=== PATIENT | male | born 1960 | race Caucasian/White ===

== ENCOUNTER 2018-06-05 07:39 | Observation (INO) ==
--- NOTE | 2018-06-05 08:09 | Emergency Department Note ---
Disposition Clinical Impression: Altered mental status, Accidental overdose Disposition: Admitted As Inpatient Condition: Good Altered Mental Status HPI - General Chief Complaint: ED Altered Mental Status Stated Complaint: altered mental status Time Seen by Provider: 06/05/18 07:40 Source: patient, EMS Mode of arrival: ambulatory Limitations: no limitations Nursing Notes Reviewed: Yes Vital Signs Reviewed: Yes - History of Present Illness HPI Narrative: Patient was apparently found wandering in the apartment complex knocking on doors trying to find his apartment. His also been laying in the mud. EMS to c ontinue his apartment and had him changes closed prior to coming in. Patient denies any complaints. He denies any pain denies any headache denies any fevers chills nausea vomiting chest pain or other complaints. He says his bipolar disorder sometimes makes him act funny. He also adds that he was recently given a trazodone prescription for sleep and he thinks because he has not taken this for quite some time its making him more sleepy than usual and confused. He is able say where he is who he is and the condition surrounding his admission here in the emergency department MD complaint: altered mental status Onset (ago): unknown Context: unknown Associated symptoms: Reports: denies other symptoms - Related Data Home Medications Medication Instructions Recorded Confirmed Famotidine [Heartburn Prevention] 20 mg PO BID 06/05/18 06/05/18 HydrOXYzine Pamoate [Vistaril] 50 mg PO Q6H PRN 06/05/18 06/05/18 Lisinopril [Zestril] 20 mg PO DAILY 06/05/18 06/05/18 Propranolol [Inderal] 5 mg PO BID 06/05/18 06/05/18 Quetiapine Fumarate [Seroquel] 400 mg PO HS 06/05/18 06/05/18 risperiDONE [Risperdal] 1 mg PO QAM 06/05/18 06/05/18 risperiDONE [Risperdal] 2 mg PO HS 06/05/18 06/05/18 traZODone [TraZODone] 1 - 2 tab PO 06/05/18 06/05/18 Allergies Allergy/AdvReac Type Severity Reaction Status Date / Time diphenhydramine Allergy See Verified 06/05/18 07:59 [From Benadryl] Comments lorazepam [From Ativan] Allergy See Verified 06/05/18 07:59 Comments All systems ED: reviewed and negative except as stated. Review of Systems: As Per HPI Constitutional: Denies: fever, chills, weakness, weight change Eyes: Denies: eye pain, eye discharge, vision change ENT ED: Denies: ear pain, throat pain, dental pain, hearing loss, epistaxis, congestion, dysphagia Cardiovascular: Denies: chest pain, palpitations, dyspnea on exertion, edema, syncope Respiratory: Denies: cough, dyspnea, wheezes, hemoptysis, stridor Gastrointestinal: Denies: abdominal pain, nausea, vomiting, diarrhea, constipation, hematemesis, melena, hematochezia Genitourinary: Denies: urgency, dysuria, frequency, hematuria Musculoskeletal: Denies: back pain, neck pain, arthralgia, myalgia Integumentary: Denies: rash, abrasion, lesions Neurological: Denies: headache, weakness, numbness, paresthesias, confusion, abnormal gait, vertigo Psychiatric: Denies: anxiety, depression, suicidal thoughts, homicidal thoughts, auditory hallucinations, visual hallucinations Endocrine: Denies: fatigue Hematological/Lymphatic: Denies: easy bleeding, easy bruising Allergic/Immunologic: Denies: facial swelling, urticaria Past Medical History - Past Medical History Attestation: Yes The following information was validated with the patient. Source: patient, nursing notes reviewed Medical history: Reports: GERD, hypertension Psychiatric history: Reports: bipolar, depression - Social History Smoking Status: Never smoker Smokeless Tobacco Status: No Alcohol use: Reports: none Drug use: Reports: none Physical Exam - General Limitations: no limitations General appearance: alert - Head Head exam: atraumatic, normocephalic, normal inspection - Eye Eye exam: Present: normal appearance, PERRL, EOMI - ENT ENT exam: normal exam, normal oropharynx, mucous membranes moist - Neck Neck exam: Present: normal inspection, full ROM, trachea midline - Chest Chest inspection: Present: normal inspection, symmetric chest wall rise - Respiratory Respiratory exam: Present: normal lung sounds bilaterally - Cardiovascular Cardiovascular exam: Present: regular rate, normal rhythm, normal heart sounds - Abdominal Exam Abdominal exam: Present: soft, Non-Tender, normal bowel sounds - Extremities Exam Extremities exam: Present: normal inspection, full ROM. Absent: tenderness, pedal edema - Back Exam Back exam: Present: normal inspection, full ROM. Absent: tenderness - Neurological Exam Neurological exam: Present: alert, oriented X3 - Psychiatric Psychiatric exam: Present: normal affect, normal mood - Skin Skin exam: Present: warm, dry, intact, normal color Course Vital Signs Temperature 97.4 F L 06/05/18 07:49 Pulse Rate 72 06/05/18 07:49 Respiratory Rate 14 06/05/18 07:49 Blood Pressure 128/82 06/05/18 07:49 O2 Sat by Pulse Oximetry 98 06/05/18 07:49 Temperature 97.4 F L 06/05/18 07:49 Pulse Rate 72 06/05/18 07:49 Respiratory Rate 14 06/05/18 07:49 Blood Pressure 128/82 06/05/18 07:49 O2 Sat by Pulse Oximetry 98 06/05/18 07:49 Oxygen Delivery Oxygen Delivery Room Air Altered Mental Status - MDM Narrative Medical decision making narrative: I reviewed the patient's medication list. He provided a blister pack of his medications from last week and the pills were not taken as directed. He probably is not taking his medicines as directed. I discussed case with Dr. Balderas who is graciously accepted admission to the hospital - Lab Data Lab results reviewed: Yes I reviewed the patient's lab results. - Radiology Data Radiology results reviewed: Yes I reviewed the patient's radiology results. - EKG Data EKG attestation: Yes I reviewed and interpreted this EKG. EKG results narrative: EKG shows sinus rhythm rate of 61 bpm. [place] interval is 143 ms. QRS duration 96 ms. QT and QTC intervals are 422 426 ms respectively. R axis of 60 degrees. There are no acute ischemic changes appreciated however there are some nonspecific ST-T abnormalities appreciated. TPA Checklist - LKW: 3-4.5 hrs Add. Warnings/Precautions Patient/family understanding: The patient/family members have been counseled and understood the risk, benefit, and alternatives of treatment.
[2018-06-05 08:44] LABS: Basophils % 0.5 %; Eosinophils # 0.1 K/mcL (0.0-0.6); Eosinophils % 1.8 %; Hematocrit 38.1 % (37.5-50.1); Hemoglobin 13.5 g/dL (12.9-16.9); Immature Granulocytes % 0.4 % (0-4); Lymphocytes # 1.3 K/mcL (0.6-4.6); Lymphocytes % 16.1 %; Mean Corpuscular HGB Conc 35.4 g/dL (31.6-35.5); Mean Corpuscular Hemoglobin 32.2 pg (28.0-33.3); Mean Corpuscular Volume 90.9 fL (83.0-100.0); Mean Platelet Volume 8.6 fL (9.4-12.4); Monocytes # 0.7 K/mcL (0.0-1.3); Neutrophils # 5.7 K/mcL (1.6-8.9); Platelet Count 187 K/mcL (140-400); Red Blood Count 4.19 M/mcL (4.19-5.50); Red Cell Distribution Width 11.6 % (11.5-14.5); Segmented Neutrophils % 72.2 %
[2018-06-05 08:50] LABS: Bilirubin,Urine Negative (Negative); Blood,Urine Moderate (Negative); Clarity,Urine Clear (Clear); Color,Urine Yellow (Yellow); Glucose,Urine (UA) Normal (Normal); Ketones,Urine Negative (Negative); Leukocyte Esterase,Urine Negative (Negative); Nitrite,Urine Negative (Negative); PH,Urine 5.5 pH Units (5.0-8.0); Protein,Urine Trace mg/dL (Neg-Trace); Specific Gravity,Urine 1.025 (1.010-1.025); Urobilinogen,Urine Normal (Normal)
[2018-06-05 09:01] LABS: Amphetamine Screen,Urine Negative ng/mL (Cutoff=1000); Barbiturate Screen,Urine Negative ng/mL (Cutoff=200); Benzodiazepines Screen,Urine Negative ng/mL (Cutoff=200); Cannabinoid Screen,Urine Negative ng/mL (Cutoff = 50); Cocaine Screen,Urine Negative ng/mL (Cutoff= 300); Opiate Screen,Urine Negative ng/mL (Cutoff=300); Phencyclidine Screen,Urine Negative ng/mL (Cutoff=25)
[2018-06-05 09:01] LABS: Troponin I < 0.03 ng/mL (< 0.04)
[2018-06-05 09:02] LABS: Alanine Aminotransferase 20 Units/L (7-52); Albumin 4.5 g/dL (3.5-5.7); Albumin/Globulin Ratio 1.9 (1.1-2.2); Alkaline Phosphatase 68 Units/L (34-104); Aspartate Amino Transferase 22 Units/L (13-39); BUN/Creatinine Ratio 11 (6-26); Bilirubin,Total 0.4 mg/dL (0.3-1.0); Blood Urea Nitrogen 14 mg/dL (8-23); Calcium 9.2 mg/dL (8.6-10.3); Carbon Dioxide 29 mEq/L (23-29); Chloride 101 mEq/L (98-107); Ethanol < 10 mg/dL (Less than 10); Globulin 2.4 g/dL (2.4-3.5); Glucose 123 mg/dL (70-105); Osmolality,Calculated 286 (280-300); Potassium 3.9 mEq/L (3.5-5.1); Sodium 137 mEq/L (136-145); Total Protein 6.9 g/dL (6.4-8.9); eGFR For Non-African Americans 59 (> 60)
[2018-06-05 09:15] LABS: Bacteria,Urine Few per hpf (None-Few)
[2018-06-05] MEDS ORDERED: Naloxone 0.4 MG/ML INJ IVP PRN (10:51)
--- NOTE | 2018-06-05 13:09 | Internal Med History&Physical ---
Date of Encounter: 06/05/18 Time of Encounter: 13:05 Assessment and Plan (1) Altered mental status Current visit: Yes Status: Acute This is apparently improved. We will watch him overnight and if he is stable, discharged tomorrow. As above, I have encouraged him not to use so much Vistaril. Qualifiers: Altered mental status type: delirium Qualified Code(s): R41.0 - Disorientation, unspecified (2) Accidental overdose Current visit: Yes Status: Acute It is presumed that this relates to Vistaril but the exact nature is uncertain. Qualifiers: Encounter type: initial encounter Qualified Code(s): T50.901A - Poisoning by unspecified drugs, medicaments and biological substances, accidental (unintentional), initial encounter (3) Essential hypertension Current visit: Yes Status: Acute Clinically stable and on medication. (4) Bipolar disorder Current visit: Yes Status: Acute This is followed by a psychiatric clinic and will continue his home regimen. Qualifiers: Active/Remission status: currently active Current bipolar episode type: depressed Current episode severity: unspecified Qualified Code(s): F31.30 - Bipolar disorder, current episode depressed, mild or moderate severity, unspecified (5) GERD (gastroesophageal reflux disease) Current visit: Yes Status: Acute This is a questionable diagnosis but the patient is on H2 blockers. Qualifiers: Esophagitis presence: esophagitis presence not specified Qualified Code(s): K21.9 - Gastro-esophageal reflux disease without esophagitis Internal Medicine - H&P: HPI Chief complaint: Mental status change Admitted From: Home Plans for Post Hospital Care: Home History of present illness: Mr. Rai is a 58 year old male who has been in his usual state of health until transported here by squad. He came to the emergency room because of disorientation, he was knocking on other doors and thinking that he was at his own house. He was having "anger issues" and for this reason developed a "panic attack." Because of this, he took 5 or 6 Vistaril to help settle his nerves. Upon review of his home medications, these are 50 mg tablets. I cautioned him that he should use only 2 at the maximum, in the future. He takes Ambien for sleep and he is not sure of the dose. He takes multiple medications for bipolar disorder and the Ambien for sleep. He had a similar episode of disorientation, about 2 months ago. No other problems were associated. He did not take extra Ambien, yesterday. The emergency room felt that this was related to his use of trazodone but he states that he only took it once and it caused him significant shaking so he stopped it. I discussed that he should let his psychiatric prescriber know that he is unable to use this medication but maybe there is a similar medication that he could use. Toxicology screen and other labs were reviewed as noted. Past medical history is significant for hypertension 6 years duration and about 19 years of bipolar disorder. He has not worked since 2009 because of his bipolar disorder. He lives alone, is single and his nearest relative is his aunt who is his legal guardian and who raised him. He used to smoke and dip tobacco but has not for at least 10 years. He denies alcohol or drug use, street drug use, marijuana smoking. Family history is non-contributory. Past Med Surg Social Fam HX - Past Medical History Medical history: GERD, hypertension Psychiatric history: bipolar, depression - Social History Smoking Status: Never smoker Smokeless Tobacco Status: No Alcohol use: none Drug use: none Internal Medicine - H&P: Meds Famotidine [Heartburn Prevention] 20 mg PO BID 06/05/18 [History] HydrOXYzine Pamoate [Vistaril] 50 mg PO Q6H PRN 06/05/18 [History] Lisinopril [Zestril] 20 mg PO DAILY 06/05/18 [History] Propranolol [Inderal] 5 mg PO BID 06/05/18 [History] Quetiapine Fumarate [Seroquel] 400 mg PO HS 06/05/18 [History] risperiDONE [Risperdal] 1 mg PO QAM 06/05/18 [History] risperiDONE [Risperdal] 2 mg PO HS 06/05/18 [History] Allergy/AdvReac Type Severity Reaction Status Date / Time diphenhydramine Allergy See Verified 06/05/18 07:59 [From Benadryl] Comments lorazepam [From Ativan] Allergy See Verified 06/05/18 07:59 Comments trazodone AdvReac Shakiness Verified 06/05/18 12:37 Review of systems: Patient is edentulous. He denies GERD to me although this is on his past medical history list from the previous documentation. Patient has no complaint of chest discomfort, dyspnea, orthopnea, breathing problems, palpitations, nausea or vomiting, constipation or diarrhea, other changes in bowel habits, heartburn, difficulty with urination, kidney problems or kidney stones, fevers chills or sweats, rash or itching, seizures, headache or lightheadedness, heat or cold intolerance, blood problems or anemia, or other new complaints, except as mentioned above. Review of systems is otherwise negative. - Constitutional Vitals: Temp Pulse Resp BP Pulse Ox 97.6 F 59 18 131/75 98 06/05/18 10:38 06/05/18 10:38 06/05/18 10:38 06/05/18 10:38 06/05/18 10:38 Exam: Examination: (Except as mentioned above): General: In no apparent distress, alert and oriented 3. Head: Atraumatic and normocephalic. Eyes: Extraocular muscles are intact, pupils equal round and reactive to light and accommodation. Sclerae anicteric. Ears: External ears are normal to inspection and hearing is grossly normal. Nose: Patent without lesion noted. Mouth: No intraoral lesions seen. He is edentulous. Neck: Supple with trachea midline. There is no thyromegaly or adenopathy and carotids are 2+ without bruit heard. Respiratory: No use of accessory muscles. Lungs are clear throughout. Normal airflow. Cardiovascular: Regular rate and rhythm without murmur appreciated. Abdomen: Bowel sounds are normal. No hepatosplenomegaly masses or tenderness. Obese and therefore difficult to palpate deeply. Extremities: No cyanosis clubbing or edema. Neurological: A and O 3. Cranial nerves II through XII are intact. No focal deficits and no abnormal movements or postures. Skin: Warm and non-diaphoretic with no lesions noted. Breasts, pelvic and rectal: Not examined. Internal Med - H&P Results - Labs CBC & Chem 7: 06/05/18 08:37 06/05/18 08:37 Labs: Short CBC 06/05/18 Range/Units 08:37 WBC 7.9 (4.3-11.1) K/mcL Hgb 13.5 (12.9-16.9) g/dL Hct 38.1 (37.5-50.1) % Plt Count 187 (140-400) K/mcL Neutrophils # 5.7 (1.6-8.9) K/mcL BMP 06/05/18 08:37 Sodium 137 Potassium 3.9 Chloride 101 Carbon Dioxide 29 BUN 14 Creatinine 1.24 Glucose 123 H Calcium 9.2 Cardiac Enzymes 06/05/18 Range/Units 08:37 Troponin I < 0.03 (< 0.04) ng/mL Liver Function 06/05/18 Range/Units 08:37 Total Bilirubin 0.4 (0.3-1.0) mg/dL AST 22 (13-39) Units/L ALT 20 (7-52) Units/L Alkaline Phosphatase 68 (34-104) Units/L Albumin 4.5 (3.5-5.7) g/dL Urine 06/05/18 Range/Units 08:35 Urine Color Yellow (Yellow) Urine Clarity Clear (Clear) Urine pH 5.5 (5.0-8.0) pH Units Ur Specific [place] 1.025 (1.010-1.025) Urine Protein Trace (Neg-Trace) mg/dL Urine Glucose (UA) Normal (Normal) mg/dL - Impressions ITS Impressions Chest X-Ray 06/05/18 08:12 IMPRESSION: No acute findings D/ / Susana Phelan MD / Susana Phelan MD Interpreting Provider: Susana Phelan MD Head CT 06/05/18 08:12 IMPRESSION: No acute intracranial abnormality. D/ / Tyrese Hughes MD / Tyrese Hughes MD Interpreting Provider: Tyrese Hughes MD
[2018-06-05] MEDS ORDERED: hydrOXYzine pamoate 25 MG CAPSULE PO PRN (13:45)
[2018-06-05] MEDS: Famotidine 20 MG TABLET PO SCH (17:55)
[2018-06-05] MEDS ORDERED: risperiDONE 1 MG TABLET PO SCH (21:00)
[2018-06-06] MEDS: Famotidine 20 MG TABLET PO SCH (08:23)
[2018-06-06] MEDS ORDERED: risperiDONE 1 MG TABLET PO SCH (09:00)
[2018-06-06] MEDS ORDERED: Lisinopril 20 MG TABLET PO SCH (09:00)
[2018-06-06 11:52] VITALS: BP 120/70
--- NOTE | 2018-06-06 13:18 | Discharge Summary ---
- NOTES TO OUTPATIENT PROVIDER Notes to Outpatient Provider: Patient was intolerant to trazodone but needs something else for his sleep. In addition, he has been instructed to take only 1 at the time of his Vistaril as he was using 5-6 and at time of 50 mg Vistoril. Date of Encounter: 06/06/18 Time of Encounter: 13:15 - Discharge Diagnosis (1) Altered mental status Priority: Primary Status: Acute Comments: Result of discharge Qualifiers: Altered mental status type: delirium Qualified Code(s): R41.0 - Disorientation, unspecified (2) Accidental overdose Priority: Secondary Status: Acute Qualifiers: Encounter type: initial encounter Qualified Code(s): T50.901A - Poisoning by unspecified drugs, medicaments and biological substances, accidental (unintentional), initial encounter (3) Essential hypertension Priority: Secondary Status: Acute (4) Bipolar disorder Priority: Secondary Status: Acute Qualifiers: Active/Remission status: currently active Current bipolar episode type: depressed Current episode severity: unspecified Qualified Code(s): F31.30 - Bipolar disorder, current episode depressed, mild or moderate severity, unspe cified (5) GERD (gastroesophageal reflux disease) Priority: Secondary Status: Acute Qualifiers: Esophagitis presence: esophagitis presence not specified Qualified Code(s): K21.9 - Gastro-esophageal reflux disease without esophagitis Hospital course: Mr. Rai is a 58 year old male who was in his usual state of health until the day before admission when he developed mental status changes, nonacute on neighbors doors, unable to care for himself. He had clearing of this when brought to the emergency room and was nearly at baseline when admitted. However, overnight he totally cleared his mental status change and went back to baseline. Discharge discussed with: patient - Time Spent with Patient Total time spent providing and/or coordinating discharge services: - Discharge Medications Prescriptions: Discontinued traZODone [TraZODone] 1 - 2 tab PO HS No Action HydrOXYzine Pamoate [Vistaril] 50 mg PO Q6H PRN PRN Reason: Anxiety risperiDONE [Risperdal] 1 mg PO QAM risperiDONE [Risperdal] 2 mg PO HS Quetiapine Fumarate [Seroquel] 400 mg PO HS Propranolol [Inderal] 5 mg PO BID Lisinopril [Zestril] 20 mg PO DAILY Famotidine [Heartburn Prevention] 20 mg PO BID Home Medications: Famotidine [Heartburn Prevention] 20 mg PO BID 06/05/18 [History] HydrOXYzine Pamoate [Vistaril] 50 mg PO Q6H PRN 06/05/18 [History] Lisinopril [Zestril] 20 mg PO DAILY 06/05/18 [History] Propranolol [Inderal] 5 mg PO BID 06/05/18 [History] Quetiapine Fumarate [Seroquel] 400 mg PO HS 06/05/18 [History] risperiDONE [Risperdal] 1 mg PO QAM 06/05/18 [History] risperiDONE [Risperdal] 2 mg PO HS 06/05/18 [History] Allergies/Adverse Reactions: Allergy/AdvReac Type Severity Reaction Status Date / Time diphenhydramine Allergy See Verified 06/05/18 07:59 [From Benadryl] Comments lorazepam [From Ativan] Allergy See Verified 06/05/18 07:59 Comments trazodone AdvReac Shakiness Verified 06/05/18 12:37 Date of admission: 06/05/18 09:24 Primary care physician: PCP NONE Discharging clinician: Domingo Balderas Anticipated date of discharge: 06/06/18 - Constitutional Vitals: Temp Pulse Resp BP Pulse Ox 98.3 F 61 18 120/70 96 06/06/18 11:51 06/06/18 11:51 06/06/18 11:51 06/06/18 11:51 06/06/18 11:51 Exam: Examination: (Except as mentioned above): General: In no apparent distress. Alert and oriented 3. Nondiaphoretic. Head: Atraumatic and normocephalic. Respiratory: No use of accessory muscles. Lungs are clear throughout. Normal airflow. Cardiovascular: Regular rate and rhythm without murmur appreciated. Abdomen: Bowel sounds are normal. No hepatosplenomegaly mass or tenderness appreciated. Obese and therefore difficult to palpate deeply. Extremities: No cyanosis clubbing or edema. Skin: Warm and non-diaphoretic with no new lesions noted. - Patient Status Disposition: Home, Self-Care Condition: Good Functional capacity at discharge: independent ambulation Overall status at discharge: patient is back to baseline - Discharge Instructions Follow Up With: NONE,PCP [Primary Care Provider] -
--- NOTE | 2018-06-07 08:58 | Electrocardiograph Report ---
[place] [id number] Test Date: 2018-06-05 Pat Name: Meet Rai Department: 2000 Room: 115 Gender: M Ergonomist: TOMASA : 1960 Requested By: Chema Call Order Number: [id number] Reading MD: Leelee Baptiste Measurements Intervals [place] Rate: 61 P: 3 RI: 143 QRS: 6 QRSD: 96 T: 29 QT: 422 QTc: 426 Interpretive Statements SINUS RHYTHM NONSPECIFIC ST & T-WAVE ABNORMALITY Electronically Signed On 06-07-2018 8:56:19 EDT by Leelee Baptiste
== END 2018-06-06 14:48 | disposition home or self-care (01) ==
LOC: INPGRE 07:39 → EMEROOGRE 07:39 → INPGRE 10:30